=== PATIENT | female | born 1990 | race Caucasian/White ===

== ENCOUNTER 2017-12-24 20:03 | Emergency (ER) | payer OTHER ==
[~2017-12-24] VITALS: Ht 175.3 cm; Wt 104.3 kg
--- NOTE | 2017-12-24 21:35 | RADIOLOGY REPORT ---
EXAMINATION: XR LEFT ELBOW XR LEFT WRIST CLINICAL INFORMATION: Question fracture versus brain after fall. Soft tissue swelling. COMPARISON: None TECHNIQUE: 4 views of the left elbow and 3 views of the left wrist. FINDINGS: There is an impacted fracture through the radial head with a transverse and sagittal oblique component, difficult to evaluate due to obliquity. There is elevation of the fat pads system consistent with an elbow joint effusion and soft tissue swelling. No dislocation is seen. The carpal bones are in normal anatomic alignment. The joint spaces are preserved. No fracture or dislocation is seen. The distal forearm bones appear normal. IMPRESSION: Radial head fracture with soft tissue swelling and an elbow joint effusion. No acute radiographic abnormality of the left wrist.
[2017-12-24 23:36] VITALS: BP 133/92
[2017-12-25] MEDS ORDERED: IBUPROFEN800 M1 PO ×2 (00:10→14:55)
[2017-12-25] MEDS ORDERED: PERCOCET 5-3251 EACH PO ×2 (00:10→14:55)
--- NOTE | 2017-12-25 00:10 | ED GENERAL ADULT ---
History of Present Illness General Chief Complaint: Upper Extremity Injury Stated Complaint: L ARM PAIN AND SWELLING FROM FALL AT WORK Source: patient Exam Limitations: no limitations Vital Signs & Intake/Output Vital Signs & Intake/Output Vital Signs Date Time Temp Pulse Resp B/P B/P Pulse O2 O2 Flow FiO2 Mean Ox Delivery Rate 12/25 2335 98.3 75 18 133/92 98 Room Air 12/24 2013 97.0 86 18 132/84 98 Room Air ED Intake and Output 12/25 0000 12/24 1200 Intake Total Output Total Balance Patient 230 lb Weight Weight Reported by Patient Measurement Method Allergies Coded Allergies: No Known Drug Allergies (NKDA 12/24/17) Reconcile Medications Ibuprofen 800 MG TABLET 1 TAB PO TID PRN pain Oxycodone HCl/Acetaminophen (Percocet 5-325 MG Tablet) 5 MG-325 MG TABLET 1 TAB PO Q4 HRS NEEDED PRN pain Triage Note: PT TO ED C/O PAIN IN "LEFT ELBOW TO WRIST" S/P SLIP AND FALL AT WORK AT 1100 AM TODAY. DENIES HEADSTRIKE, DENIES LOC. "I LANDED ON MY LEFT ARM" PT STATES SHE HAS PAIN WITH MOVEMENT "I COULD STRAIGHTEN MY ARM EARLIER AND NOW I CAN'T" GOOD PMS TO LEFT HAND Triage Nurses Notes Reviewed? yes Onset: Abrupt Duration: hour(s): Timing: single episode today : No Patient currently breastfeeds: No HPI: 27-year-old female with a history of asthma presenting with left arm pain status post mechanical fall approximately 11:00 this morning. Patient reports that she slipped on a wet floor at work and landed directly on the left arm. Has pain to her proximal forearm/elbow and is unable to extend her elbow. States that the pain radiates down her forearm. Denies numbness or paresthesias. (Molly Martinez) Past History Travel History Traveled to [place] past 21 day No Medical History Any Pertinent Medical History? see below for history Respiratory: asthma Surgical History Surgical History: non-contributory Psychosocial History What is your primary language Par[place]ayan Tobacco Use: Never used ETOH Use: occasional use Illicit Drug Use: denies illicit drug use Family History Hx Contributory? No (Molly Martinez) Review of Systems Review of Systems Constitutional: Reports: no symptoms. EENTM: Reports: no symptoms. Respiratory: Reports: no symptoms. Cardiovascular: Reports: no symptoms. GI: Reports: no symptoms. Genitourinary: Reports: no symptoms. Musculoskeletal: Reports: see HPI. Skin: Reports: no symptoms. Neurological/Psychological: Reports: no symptoms. Hematologic/Endocrine: Reports: no symptoms. Immunologic/Allergic: Reports: no symptoms. All Other Systems: Reviewed and Negative (Molly Martinez) Physical Exam Physical Exam General Appearance: well developed/nourished, no apparent distress, alert, awake Comments: Gen.: Well-nourished, well-developed, no acute distress. Head: Normocephalic, atraumatic. Eyes: Normal inspection bilaterally Ears: Normal inspection bilaterally Nose: Normal inspection Neck: Normal inspection Lungs: clear to auscultation bilaterally, normnal breath sounds Heart: regular rate and rhythm Abdomen: soft and non-tender EXTREMITIES: Left upper extremity Inspection: Normal inspection, no abrasions/laceration/ecchymosis/edema/ deformity Palpation: Tender to palpation over the proximal forearm, there is no tenderness to palpation over the distal forearm or wrist bones ROM: Patient is able to flex her elbow, but unable to extend the elbow due to pain. She has unrestricted range of motion with wrist flexion and extension, but has difficulty with supination/pronation as this produces pain in her proximal forearm Sensation: intact Motor strength: Decreased motor strength Pulse: 2+ radial pulse that was only weakly palpable, but strongly audible with Doppler Neurologic: alert and oriented x3, steady gait Skin: warm and dry Psychiatric: Normal mood and affect, no apparent delusions or hallucinations, behavior appropriate Core Measures ACS in differential dx? No CVA/TIA Diagnosis: No Sepsis Present: No Sepsis Focused Exam Completed? No (Molly Martinez) Progress Differential Diagnoses I considered the following diagnoses in my evaluation of the patient: [Contusion versus fracture, low concern for nerve injury versus vascular injury] Plan of Care: XR IMPRESSION: Radial head fracture with soft tissue swelling and an elbow joint effusion. No acute radiographic abnormality of the left wrist. Patient was placed in a sugar tong splint. We will follow-up with orthopedics. Given Rx Motrin and Percocet for pain. Counseled on supportive care and strict return precautions. December 25, 2017 at 2 PM Patient initially had her prescription sent to [facility] in [place]. Called the ER and requested that they be sent to [facility] in [place] instead. Prescriptions were recent to [facility], and I called [facility] to cancel the previous prescriptions. Initial ED EKG: none (Molly Martinez) Departure Departure Disposition: HOME OR SELF CARE Condition: Stable Clinical Impression Primary Impression: Left radial head fracture Referrals: Axel GALINDO,Diamante (PCP/Family) Richi Todd MD Additional Instructions: Use Motrin and Percocet as needed for pain. Follow-up with orthopedics for reevaluation in 1 week. Return to the emergency department for any new or worsening symptoms. Departure Forms: Customer Survey General Discharge Information Industrial Accident Report Prescriptions: Current Visit Scripts Ibuprofen 1 TAB PO TID PRN pain #60 TAB Oxycodone HCl/Acetaminophen (Percocet 5-325 MG Tablet) 1 TAB PO Q4 HRS NEEDED PRN pain #12 TAB (Molly Martinez) PA/[employer] Co-Sign Statement Statement: ED Attending supervision documentation- I saw and evaluated the patient. I have also reviewed all the pertinent lab results and diagnostic results. I agree with the findings and the plan of care as documented in the PA's/[employer]IT[employer]'s documentation. x I have reviewed the ED Record and agree with the PA's/M[employer]IT[employer]'s documentation. [] Additions or exceptions (if any) to the PAs/M[employer]ITARY [employer]ER's note and plan are summarized below: [] (Jesus Alberto GALINDO,Ousmane) Procedures Splinting Location: left forearm Manual Alignment Performed: No Hand-Made Type: orthoglass Splint: sugar-tong Splint Applied By: splint applied by me Pre-Proc Neuro Vasc Exam: normal Post-Proc Neuro Vasc Exam: normal (Molly Martinez) Critical Care Note Critical Care Note Critical Care Time: non-applicable (Molly Martinez)
== END 2017-12-25 00:24 ==
LOC: ERH 20:03
DX: S52.122A Displaced fracture of head of left radius, initial encounter for closed fracture (principal); W01.0XXA Fall on same level from slipping, tripping and stumbling without subsequent striking against object, initial encounter; Y92.89 Other specified places as the place of occurrence of the external cause; Y93.9 Activity, unspecified; F10.10 Alcohol abuse, uncomplicated
CPT/HCPCS: 73080-LT; 73110-LT